=== PATIENT | female | born 2000 | race African-American/Black ===

== ENCOUNTER 2024-04-06 13:31 | Emergency (ER) | payer OTHER ==
[~2024-04-06] VITALS: Ht 172.7 cm; Wt 107.8 kg
[2024-04-06 14:25] VITALS: BP 147/102
--- NOTE | 2024-04-06 20:52 | EKG ---
[facility] [address] [place] [address] Signed Normal sinus rhythm Minimal voltage criteria for LVH, may be normal variant ( R in aVL ) ST elevation, consider early repolarization, pericarditis, or injury Abnormal ECG No previous ECGs available Confirmed by Tracey Mckeon MD ([id number]) on 04/06/2024 8:51:45 PM Electronically Signed By: TRACEY MCKEON DO 04/06/242051 PATIENT NAME: ZOË NASH Electrocardiogram DATE OF : 89 PHYSICIAN: TRACEY MCKEON DO REPORT #: [id number] REPORT IS CONFIDENTIAL AND NOT TO BE RELEASED WITHOUT AUTHORIZATION
== END 2024-04-06 14:48 | disposition home or self-care (01) ==
LOC: ED 13:31
DX: Z00.00 Encounter for general adult medical examination without abnormal findings (principal)
CPT/HCPCS: 93005; 93010; 99283

== ENCOUNTER 2024-04-09 10:10 | Emergency (ER) | payer OTHER ==
[~2024-04-09] VITALS: Ht 172.7 cm; Wt 108.0 kg
--- OUTSIDE RECORDS SUMMARY | 2024-04-09 10:17 | XMS ---
PreManage Notification: ZOË NASH Security Community Assistant Events No recent Security Events currently on file CRITERIA MET - [facility] - 2 Visits in 30 Days CARE PROVIDERS There are no care providers on record at this time. Magdalena has no Care Guidelines for this patient. Jacqueline VISIT COUNT (12 MO.) 2 [facility] [place]. TOTAL 2 NOTE: Visits indicate total known visits. ED/[facility] VISIT TRACKING (12 MO.) 04/09/2024 10:10 [facility] [place] TYPE: Emergency COMPLAINT: - BLOOD SUGAR PROBLEM 04/06/2024 13:31 [facility] [place] TYPE: Emergency COMPLAINT: - ABNORMAL LAB RESULTS DIAGNOSES: - Abnormal finding of blood chemistry, unspecified - Encounter for general adult medical examination without abnormal findings INPATIENT VISIT TRACKING (12 MO.) No inpatient visits to display in this time frame [email or web address]
[2024-04-09] MEDS ORDERED: GUANFACINE HCL1 MG PO (14:22)
[2024-04-09] MEDS ORDERED: METFORMIN HCL500 MG PO (16:48)
[2024-04-09 16:54] VITALS: BP 119/80
== END 2024-04-09 16:56 | disposition home or self-care (01) ==
LOC: ED 10:10
DX: E11.9 Type 2 diabetes mellitus without complications (principal); Z79.899 Other long term (current) drug therapy
CPT/HCPCS: 99283